=== PATIENT | male | born 1990 | race Asian ===

== ENCOUNTER 2016-02-23 05:20 | Emergency (ER) | payer BC ==
[~2016-02-23] VITALS: Ht 167.6 cm; Wt 80.0 kg
[2016-02-23 05:21] VITALS: BP 140/80; PULSE 79; RESP 16; TEMP 98.5; O2SAT 97
[2016-02-23] MEDS ORDERED: ALUMINUM/MAGNESIUM/SIMETH 30 ML CUP PO ONE (06:00)
[2016-02-23] MEDS ORDERED: ONDANSETRON ODT 4 MG TAB PO ONE (06:00)
[2016-02-23] MEDS ORDERED: LIDOCAINE VISCOUS 2% SOLN 15 ML UDC PO ONE (06:00)
[2016-02-23] MEDS ORDERED: ZOFR4TAB3 SL (06:23)
--- NOTE | 2016-02-23 06:24 | PD ---
HPI Chief Complaint: GI Complaint Time Seen by Provider: 05:46 Travel History International Travel<30 days: No Contact w/Intl Traveler<30days: No Traveled to known affect area: No History of Present Illness HPI The patient is 25 years old. He arrives complaining of diarrhea and vomiting tonight as well as abdominal pain. After vomiting he developed a sore throat. The sore throat can be quite uncomfortable and has prevented him from sleeping. No fever. Last oral intake was sushi which he states tasted normal. No blood in the diarrhea or vomiting. PFSH Past Medical History Medical History: Denies Significant Hx Tetanus Vaccination: Unknown Influenza Vaccination: No Past Surgical History Surgical History: No Previous Surgery Social History Alcohol Use: Yes (ONCE A WEEK) Tobacco Use: Yes (1/2 PPD) Substance Use: No Allergies-Medications (Allergen,Severity, Reaction): Coded Allergies: No Known Allergies (Unverified , 02/23/16) Reported Meds & Prescriptions Reported Meds & Active Scripts Active No Active Prescriptions or Reported Medications Review of Systems Except as stated in HPI: all other systems reviewed are Neg Physical Exam Narrative GENERAL: 25-year-old male pleasant well-nourished well-developed no acute distress SKIN: Warm and dry. HEAD: Atraumatic. Normocephalic. EYES: Pupils equal and round. No scleral icterus. No injection or drainage. ENT: No nasal bleeding or discharge. Mucous membranes pink and moist. NECK: Trachea midline. No JVD. CARDIOVASCULAR: Regular rate and rhythm. No murmur appreciated. RESPIRATORY: No accessory muscle use. Clear to auscultation. Breath sounds equal bilaterally. GASTROINTESTINAL: Soft. No focal tenderness. MUSCULOSKELETAL: No obvious deformities. No clubbing. No cyanosis. No edema. NEUROLOGICAL: Awake and alert. No obvious cranial nerve deficits. Motor grossly within normal limits. Normal speech. PSYCHIATRIC: Appropriate mood and affect; insight and judgment normal. Data Data Last Documented VS Vital Signs Date Time Temp Pulse Resp B/P Pulse Ox O2 Delivery O2 Flow Rate FiO2 02/23/16 05:21 98.5 79 16 140/80 97 Room Air Vital signs reviewed Orders Al-Mag Hy-Si 40-40-4 Mg/Ml Liq (Mag-Al P (02/23/16 06:00) Lidocaine 2% Viscous (Xylocaine 2% Visco (02/23/16 06:00) Ondansetron Odt (Zofran Odt) (02/23/16 06:00) [facility] Medical Decision Making Medical Screen Exam Complete: Yes Emergency Medical Condition: Yes Differential Diagnosis Constipation, Gastritis, Acute Cholecystitis, Biliary Colic, Pancreatitis, BURRELL , Hepatitis, Bowel Obstruction, Cystitis, Mesenteric Ischemia, AAA, Appendicitis , Renal Stone/Hydronephrosis, GERD, perforated viscous Narrative Course Patient has received GI cocktail and Maalox with significant improvement. We will send the patient home with Zofran. Diagnosis Primary Impression: Nausea & vomiting Qualified Code: R11.2 - Nausea and vomiting, intractability of vomiting not specified, unspecified vomiting type Additional Impressions: Sore throat Diarrhea Qualified Code: R19.7 - Diarrhea, unspecified type Additional Instructions: You have a choice when it comes to health care, and we are glad that you chose [facility]. Hopefully, we have met your expectations on today's visit. You are welcome to return to [facility] at any time, as we are committed to meeting the health care needs of our community. Med/Other Pt SpecificInfo: Prescription(s) given Scripts Ondansetron Odt (Zofran Odt)4 Mg Tab4 Mg SL Q8HR PRN (Nausea/Vomiting) #10 TAB Ref 0 Prov:Bradley Corea MD 02/23/16 Disposition: 01 DISCHARGE HOME Condition: Stable Bradley Corea MD Feb 23, 2016 06:23
== END 2016-02-23 06:46 | disposition home or self-care (01) ==
LOC: NEPE 05:20
DX: R11.2 Nausea with vomiting, unspecified (principal); J02.9 Acute pharyngitis, unspecified; R19.7 Diarrhea, unspecified; F17.210 Nicotine dependence, cigarettes, uncomplicated
CPT/HCPCS: 99283